=== PATIENT | male | born 1945 | race Caucasian/White ===

== ENCOUNTER 2016-09-13 14:47 | Inpatient (IN) | payer OTHER, MEDICAID ==
[~2016-09-13] VITALS: Ht 170.2 cm; Wt 70.8 kg
[~2016-09-13 14:47] MED LIST: ACYC200C10 PO; ALBU0.0912 IH; ASPI-1052 PO; ATOR40TA PO; CARV3.12 PO; CLOP75TA PO; LISI5TAB18 PO; METF500T PO
[2016-09-13 14:56] VITALS: BP 119/61
--- NOTE | 2016-09-13 15:46 | NUR ---
Patient ambulated to bed 05.
[2016-09-13] MEDS ORDERED: NACL 0.9% 1,000 ML IV ONE (15:55)
[2016-09-13] MEDS ORDERED: ASPIRIN 81 MG TAB.CHEW PO ONE (15:55)
--- NOTE | 2016-09-13 15:55 | NUR ---
PT PRESENTS TO ER AFTER REFERRAL FROM URGENT CARE FOR EVALUATION OF CHEST PAIN. 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
--- NOTE | 2016-09-13 16:00 | NUR ---
Dr. Nobles evaluating patient at bedside.
[2016-09-13] MEDS ORDERED: NITROGLYCERIN 2% 1 GM PKT TP ONE (16:10)
[2016-09-13] MEDS ORDERED: MORPHINE SULFATE 2 MG/ML SYR IVP ONE (16:10)
[2016-09-13 16:23] LABS: BASOPHILS # (AUTO) 0.5 K/uL (0.00-0.22); EOSINOPHILS # (AUTO) 0.1 K/uL (0-0.4); HEMATOCRIT 44.4 % (36-52); HEMOGLOBIN 14.5 g/dL (12.0-18.0); LYMPHOCYTES # (AUTO) 1.6 K/uL (2.0-11.5); MEAN CORPUSCULAR HEMOGLOBIN 31 pg (27-31); MEAN CORPUSCULAR HGB CONC 33 g/dL (33-37); MEAN CORPUSCULAR VOLUME 95 fL (80-94); MONOCYTES # (AUTO) 0.6 K/uL (0.8-1.0); NEUTROPHILS # (AUTO) 4.6 K/uL (1.8-7.7); PLATELET COUNT (AUTO) 290 K/uL (140-450); RED BLOOD CELL COUNT(AUTO) 4.68 MIL/uL (4.20-6.10); RED CELL DISTRIBUTION WIDTH 14.3 % (11.6-13.7); WHITE BLOOD COUNT (AUTO) 7.4 K/uL (4.8-10.8)
[2016-09-13 16:40] LABS: ANION GAP 11.4 (8-16); CARBON DIOXIDE 27.2 mmol/L (21-32); CHLORIDE 103 mmol/L (98-107); CREATININE 1.2 mg/dL (0.6-1.3); GLUCOSE 148 mg/dL (74-106); POTASSIUM 3.6 mmol/L (3.5-5.1); SODIUM SERUM 138 mmol/L (136-145); UREA NITROGEN, BLOOD 18 mg/dL (7-18)
[2016-09-13 16:46] LABS: INR 1.2 (0.8-1.2); PARTIAL THROMBOPLASTIN TIME 26.5 secs (22-35.6); PROTHROMBIN TIME 11.5 secs (10.8-13.4)
[2016-09-13 16:48] LABS: ALANINE AMINOTRANSFERASE 16 U/L (12-78); ALBUMIN 3.3 g/dL (3.4-5.0); ALKALINE PHOSPHATASE 105 U/L (46-116); ASPARTATE AMINOTRANSFERASE 19 U/L (15-37); TOTAL BILIRUBIN 0.7 mg/dL (0.0-1.0); TOTAL PROTEIN, SERUM 7.8 g/dL (6.4-8.2)
--- NOTE | 2016-09-13 17:20 | NUR ---
PT IS SLEEPING;NO ACUTE DISTRESS NOTED AT THIS TIME;WILL CONTINUE TO MONITOR PT.
[2016-09-13] MEDS ORDERED: ENOXAPARIN 60 MG/0.6 ML SYR SUBQ ONE (17:30)
[2016-09-13] MEDS: NACL 0.9% 1,000 ML IV SCH (17:42)
[2016-09-13] MEDS ORDERED: MORPHINE SULFATE 2 MG/ML SYR IVP PRN (17:45)
[2016-09-13] MEDS ORDERED: ZOLPIDEM 5 MG TAB PO PRN (17:45)
[2016-09-13] MEDS ORDERED: ONDANSETRON 4 MG/2 ML VIAL IVP PRN (17:45)
[2016-09-13] MEDS ORDERED: HYDROcodone/APAP 5/325 MG 1 TAB TAB PO PRN (17:45)
[2016-09-13] MEDS ORDERED: ACETAMINOPHEN 325 MG TAB PO PRN (17:45)
[2016-09-13] MEDS ORDERED: LORazepam 1 MG TAB PO PRN (17:45)
[2016-09-13] MEDS ORDERED: NITROGLYCERIN 0.4 MG TAB SL PRN (17:45)
[2016-09-13] MEDS ORDERED: INSULIN LISPRO SLIDING SCALE 100 UNITS/ML VIAL SUBQ PRN (18:00)
[2016-09-13] MEDS ORDERED: DEXTROSE 50% 50 ML SYR IVP PRN (18:00)
--- NOTE | 2016-09-13 18:35 | NUR ---
PT C/O OF SOB;PUT PT TO O2 AT 6 LPM.
[2016-09-13] MEDS ORDERED: ALBUTEROL SULFATE/IPRATROPIU 3 ML SOL IH ONE (18:50)
[2016-09-13 18:51] LABS: FREE T4 (FREE THYROXINE) 1.05 ng/dL (0.76-1.46); MAGNESIUM 1.8 mg/dL (1.8-2.4); PHOSPHORUS 3.2 mg/dL (2.5-4.9); THYROID STIMULATING HORMONE 1.59 uIU/mL (0.34-3.76)
--- NOTE | 2016-09-13 18:59 | NUR ---
Patient will be admitted to care of DR MAYA. Admited to TELE. Will go to room 106 A. Belongings list completed. Report to BELINDA ACUÑA.
[2016-09-13 19:02] LABS: CHOL/HDL RATIO 8.2 (1-4.5)
--- NOTE | 2016-09-13 19:08 | NUR ---
RT AT BEDSIDE.
--- NOTE | 2016-09-13 19:40 | NUR ---
RECEIVED REPORT FROM DOMENICO TREVINO WHO GOT REPORT FROM ER. PT ARRIVED TO UNIT VIA GURNEY. PT AAOX4. PT STABLE, VS STABLE. PT ON 02 2L NC; SATURATION 97%. PT'S SKIN IS INTACT. PT DENIES PAIN OR DISCOMFORT. PT HAS IV TO RIGHT WRIST G 22; ASYMPTOMATIC, PATENT AND INTACT INFUSING FLUIDS WELL. EXPLAINED PLAN OF CARE TO PT AND HE VERBALIZES UNDERSTANDING. CALL LIGHT WITHIN REACH.
[2016-09-13 19:41] LABS: APPEARANCE,URINE CLEAR (CLEAR); BILIRUBIN,URINE NEGATIVE (NEGATIVE); BLOOD, URINE TRACE-I (NEGATIVE); COLOR,URINE YELLOW (YELLOW); LEUKOCYTE ESTERASE ,URINE NEGATIVE (NEGATIVE); NITRITE, URINE NEGATIVE (NEGATIVE); PH,URINE 6.5 (5.0-9.0); PROTEIN,URINE NEGATIVE (NEGATIVE); UGLUCOSE NEGATIVE (NEGATIVE); UROBILINOGEN,URINE 0.2 EU/dL (0.2 - 1)
--- NOTE | 2016-09-13 19:42 | NUR ---
Pt report given to BELINDA ACUÑA. Transfer of care at this time.
[2016-09-13 19:48] LABS: BACTERIA,URINE None Seen /HPF (None Seen); RBC,URINE 0-5 (RARE) /HPF (0-5); SQUAMOUS EPITHELIAL CELL,UR RARE /LPF (0-3 (FEW)); WBC,URINE 0-5 (RARE) /HPF (0-5)
[2016-09-13] MEDS: CARVEDILOL 3.125 MG TAB PO SCH (21:03)
[2016-09-13] MEDS: BLOOD GLUCOSE MONITORING 1 DEV DEV FS SCH (21:04)
--- NOTE | 2016-09-13 21:06 | NUR ---
PT TOLERATED 2100 MED WELL. CALL LIGHT WITHIN REACH.
[2016-09-14] VITALS (60 sets, daily range): BP systolic 47–153; BP diastolic 30–109
--- NOTE | 2016-09-14 00:01 | NUR ---
PT HAS SCDS ON. CALL LIGHT WITHIN REACH.
--- NOTE | 2016-09-14 00:38 | NUR ---
RECEIVED CRITICAL LAB VALUE; TROPONIN 0.161. DR. LIVINGSTON WHO IS COVERING FOR DR. CARMEN TORIBIO. SHE STATED SHE WILL PUT IN ORDERS. WILL FOLLOW UP. PT STABLE.
[2016-09-14] MEDS ORDERED: HEPARIN PER PHARMACY MC PRN (00:55)
[2016-09-14] MEDS ORDERED: hePARIN / DEXT 5% PREMIX 250 ML IV SCH ×3 (00:55→13:00)
--- NOTE | 2016-09-14 01:06 | NUR ---
RECEIVED CRITICAL RAD REPORTS FROM RADIOLOGY. DOPPLER STUDY US AND VENOUS DOPPLER STUDY. DR. LIVINGSTON WHO IS COVERING FOR DR. MORALES AWARE. NO NEW ORDERS GIVEN. WILL CONTINUE TO MONITOR PT.
--- NOTE | 2016-09-14 02:08 | NUR ---
HEPARIN DRIP INFUSING ORDERED. 800 UNITS/HOUR. PT STABLE.
--- NOTE | 2016-09-14 02:15 | NUR ---
PT COMPLAINING OF DIFFICULTY BREATHING, RT AT BEDSIDE. PT ON VENTURI MASK. PT SATURATION IS 100%. WILL CONTINUE TO MONITOR PT.
--- NOTE | 2016-09-14 02:45 | NUR ---
PT COMPLAINING OF DIFFICULTY BREATHING, PT ON VENTURI MASK AT 50%, HR 128. DR. MEDINA NOTIFIED. DR. LIVINGSTON ORDERED ABG AND BIPAP. WILL FOLLOW UP.
--- NOTE | 2016-09-14 03:45 | NUR ---
PT STILL HAVING TROUBLE BREATHING WITH THE BIPAP, PT COLD AND SHOWING SIGNS OF DISTRESS. BLOOD PRESSURES STABLE, HEART RATE 120, BLOOD SUGAR 293. WILL CONTINUE TO MONITOR PT.
--- NOTE | 2016-09-14 03:45 | NUR ---
ABG WAS DONE AND RESULTS GIVEN TO DOMENICO STRATTON AND WAS GIVEN TO DR. LIVINGSTON. PATIENT WAS ABOUT TO BE TRANSFERED TO ICU THEN LIONEL CHOI WAS CALLED, AMBUED PATIERNT WITH 100%O2. PATIENT INTUBATED MY AND TRANSFERED TO ICU BED 3
--- NOTE | 2016-09-14 03:45 | NUR ---
ABG RESULTS ABNORMAL, PT STILL HAVING DIFFICULTY BREATHING. DR. MEDINA NOTIFIED. ORDERED TO TRANSFER PT TO ICU AND INTUBATE. WILL FOLLOW UP ON ORDERS.
--- NOTE | 2016-09-14 03:50 | NUR ---
PT DECLINING RAPIDLY, HAVING DIFFICULTY BREATHING, HEART RATE DECREASING NOW . CODE BLUE INITIATED. ER DR. HUFFMAN AT BEDSIDE INTERVENING. RT WENDY AND TIFFANI AT BEDSIDE. WILL CONTINUE MONITORING PT.
[2016-09-14 03:52] LABS: BLOOD GAS BASE EXCESS -7.2 mmol/L (-2.0-2.0); BLOOD GAS HCO3 23.1 mmol/L; BLOOD GAS O2 SAT% 98.7 % (92.0-98.5); BLOOD GAS PCO2 67.7 mmHg (20-50); BLOOD GAS PO2 166.9 mmHg
--- NOTE | 2016-09-14 04:10 | NUR ---
PT'S DAUGHTER NOTIFIED OF PT'S CONDITION.
--- NOTE | 2016-09-14 04:10 | NUR ---
DR. MEDINA NOTIFIED THAT PT CODED.
--- NOTE | 2016-09-14 04:35 | NUR ---
PT INTUBATED AND HEART RATE SR.
--- NOTE | 2016-09-14 04:35 | NUR ---
DAMARI GUTIERRES ORDERED TO STOP THE HEPARIN DRIP.
--- NOTE | 2016-09-14 04:40 | NUR ---
PT TRANSFERRED TO ICU FOR CONTINUITY OF CARE. REPORT GIVEN TO ICU NURSE JU. ER DOCTOR AND CHARGE NURSE AT BEDSIDE.
[2016-09-14] MEDS ORDERED: NOREPINEPHRINE 4 MG/4 ML VIAL IV ONE (05:00)
[2016-09-14] MEDS ORDERED: NOREPINEPHRINE 8 MG in DEXTROSE 5% 250 ML IV PRN (05:35)
--- NOTE | 2016-09-14 05:35 | NUR ---
PATIENT RECEIVED FROM [facility] AT [address] AND SOB, PATIENT S/P ORALLY INTUBATED, PATIENT CAME IN TO ICU WITH BRENNAN/DOMENICO, IVONNE/PROVIDER RELATIONS SPECIALIST. ER DOCTOR AT BEDSIDE RIGHT NOW FOR CENTRAL LINE PLACEMENT. PATIENT WAS STARTED ON LEVOPHED DRIP AND NS BOLUS 1000 ML GIVEN. PATIENT'S DAUGHTER JAMES AT BEDSIDE.
[2016-09-14] MEDS: NACL 0.9% 1,000 ML IV SCH ×2 (05:51→16:36)
--- NOTE | 2016-09-14 06:00 | NUR ---
TLC PLACED ON LEFT FEMORAL AREA BY ER PHYSICIAN.
[2016-09-14] MEDS ORDERED: NACL 0.9% 1,000 ML IV ONE ×2 (06:30→14:50)
--- NOTE | 2016-09-14 06:45 | NUR ---
RECEIVED PT ON [place]ES[place] ON A/C 14 VT 550 PEEP5 FIO2 100 ALARMS ARE ON AND FUNCTIONAL BMV HOB ANCHOR FAST PLACE ET TUBE SECURED 23 CM BS THONCI I\L LAVAGE AND SX SM BLOODY CXR WAS ORDERED PT IN HF NOT AWAKE VENT PLUGGED INTO RED OUTLET
--- NOTE | 2016-09-14 06:55 | NUR ---
PAGED DR. LIVINGSTON AT 2327. NO CALL BACK FROM UP TO THIS TIME.
[2016-09-14] MEDS: BLOOD GLUCOSE MONITORING 1 DEV DEV FS SCH ×3 (07:06→16:41)
--- NOTE | 2016-09-14 07:38 | NUR ---
ENDORSED PATIENT AND REPORT GIVEN TO NAMRATA HANSEN RN.
--- NOTE | 2016-09-14 07:40 | NUR ---
RECEIVED REPORT FROM DOMENICO DODD. NO SIGNS OF ACUTE DISTRESS AT THIS TIME, FLACC 0. PT IS ETT TO VENT. FIO2: 100%, AC: 14, TV: 550, PEEP: 5. OGT REPORTED TO BE MD MARIJA AWARE, AWAITING FOR CHEST XRAY RESULTS AT THIS TIME. IV TO RIGHT WRIST #22, PATENT AND INTACT. CENTRAL LINE IN PLACE TO LEFT FEMORAL X 3 LUMEN, ALL PORTS PATENT AND INTACT. PT IS ON LEVOPHED DRIP RUNNING AT 15 MCG/MIN. SKIN IS INTACT. SAFETY PRECAUTIONS IN PLACE WITH BED IN LOWEST POSITION AND SIDE RAILS UP X2. CALL LIGHT WITHIN REACH. PT IS CURRENTLY SINUS RHYTHM ON THE MONITOR. WILL CONTINUE TO MONITOR.
[2016-09-14 07:42] LABS: BLOOD GAS PCO2 45.5 mmHg (20-50); BLOOD GAS PH 7.253 (7.35-7.45)
[2016-09-14 07:43] LABS: BLOOD GAS BASE EXCESS -7.5 mmol/L (-2.0-2.0); BLOOD GAS HCO3 19.6 mmol/L; BLOOD GAS O2 SAT% 95.3 % (92.0-98.5); BLOOD GAS PO2 86.6 mmHg
--- NOTE | 2016-09-14 07:44 | NUR ---
DR. MAYA IN TO SEE PT. WILL FOLLOW UP ON ORDERS.
--- NOTE | 2016-09-14 07:48 | NUR ---
JULI REPORTED TO DR MAYA
[2016-09-14] MEDS: metFORMIN 500 MG TAB PO SCH ×2 (08:00→16:42)
[2016-09-14] MEDS ORDERED: PROPOFOL 1000 MG/100 ML PREMIX 100 ML IV PRN (08:00)
[2016-09-14 08:17] LABS: T4 (THYROXINE) 6.3 ug/dL (4.5-12.0)
[2016-09-14 08:19] LABS: HEMATOCRIT 43.3 % (36-52); HEMOGLOBIN 14.5 g/dL (12.0-18.0); MEAN CORPUSCULAR HEMOGLOBIN 31 pg (27-31); MEAN CORPUSCULAR HGB CONC 33 g/dL (33-37); MEAN CORPUSCULAR VOLUME 93 fL (80-94); PLATELET COUNT (AUTO) 333 K/uL (140-450); RED BLOOD CELL COUNT(AUTO) 4.64 MIL/uL (4.20-6.10); RED CELL DISTRIBUTION WIDTH 14.1 % (11.6-13.7)
--- NOTE | 2016-09-14 08:20 | NUR ---
PT'S STEP DAUGHTER, JAMES, IN TO SEE PT.
[2016-09-14] MEDS ORDERED: ARTIFICIAL TEARS OPHTH OINT 3.5 GM TUBE OP PRN (08:25)
--- NOTE | 2016-09-14 08:30 | NUR ---
PATIENT HAS BEEN SCREENED AND CATEGORIZED MODERATE NUTRITION RISK. PATIENT WILL BE SEEN WITHIN 3-5 DAYS OF ADMISSION. 09/16/16-09/18/[address] Addendum: 09/14/16 at [address] PATIENT HAS BEEN RESCREENED AND RECATEGORIZED HIGH NUTRITION RISK. PATIENT WILL BE SEEN WITHIN 1-2 DAYS OF ADMISSION. 09/14/16-09/15/[address]
[2016-09-14 08:51] LABS: ALANINE AMINOTRANSFERASE 25 U/L (12-78); ALBUMIN 2.6 g/dL (3.4-5.0); ALKALINE PHOSPHATASE 96 U/L (46-116); ANION GAP 14.7 (8-16); ASPARTATE AMINOTRANSFERASE 44 U/L (15-37); CALCIUM 7.8 mg/dL (8.5-10.1); CHLORIDE 107 mmol/L (98-107); CREATININE 1.5 mg/dL (0.6-1.3); GLUCOSE 256 mg/dL (74-106); MAGNESIUM 1.7 mg/dL (1.8-2.4); PHOSPHORUS 4.1 mg/dL (2.5-4.9); POTASSIUM 3.7 mmol/L (3.5-5.1); SODIUM SERUM 141 mmol/L (136-145); TOTAL BILIRUBIN 0.9 mg/dL (0.0-1.0); TOTAL PROTEIN, SERUM 6.6 g/dL (6.4-8.2); UREA NITROGEN, BLOOD 19 mg/dL (7-18)
[2016-09-14 08:54] LABS: BAND % (MANUAL) 12 % (0-8); LYMPHOCYTES % (MANUAL) 4 % (20-46); MONOCYTES % (MANUAL) 1 % (5-12); NEUTROPHILS % (MANUAL) 83 (43-65)
[2016-09-14 08:55] LABS: PLATELET ESTIMATE ADEQUATE
--- NOTE | 2016-09-14 08:58 | NUR ---
UNABLE TO ADMINISTER MEDICATION ORDERED OGT IS STUCK AND NOT ADVANCED TO THE STOMACH. MD AWARE.
[2016-09-14] MEDS ORDERED: CLOPIDOGREL 75 MG TAB PO SCH (09:00)
[2016-09-14] MEDS ORDERED: DOCUSATE SODIUM 100 MG GELCAP PO SCH (09:00)
[2016-09-14] MEDS ORDERED: LISINOPRIL 5 MG TAB PO SCH (09:00)
[2016-09-14] MEDS: CARVEDILOL 3.125 MG TAB PO SCH (09:00)
[2016-09-14] MEDS ORDERED: ATORVASTATIN 20 MG TAB PO SCH (09:00)
[2016-09-14] MEDS ORDERED: ASPIRIN 81 MG TAB.CHEW PO SCH (09:00)
--- NOTE | 2016-09-14 09:00 | NUR ---
VENT CHECK CREDIT UNION FIELD EXAMINER OBTAINED LG BLOODY
--- NOTE | 2016-09-14 09:01 | NUR ---
SPOKE WITH DR. SHELTON REGARDING OGT, RECOMMENDED NGT INSERTION FOR MEDICATION ADMINISTRATION. WILL FOLLOW UP ON ORDERS.
--- NOTE | 2016-09-14 09:06 | NUR ---
SPOKE WITH ERNA FROM [facility] AND GAVE VERBAL REPORT FAXED INITIAL REVIEW TO [facility] [phone] PHONE ERNA [phone]
[2016-09-14 09:34] LABS: INR 1.3 (0.8-1.2); PARTIAL THROMBOPLASTIN TIME 27.4 secs (22-35.6); PROTHROMBIN TIME 12.1 secs (10.8-13.4)
[2016-09-14] MEDS ORDERED: MAG SULF 2000 MG/WATER PREMIX 50 ML IV SCH (09:35)
[2016-09-14] MEDS ORDERED: PANTOPRAZOLE 40 MG INJ VIAL IVP SCH (09:37)
--- NOTE | 2016-09-14 09:57 | NUR ---
16 FR NELSON CATHETER INSERTED. PT TOLERATED WELL. OUTPUT OF CLEAR YELLOW URINE RETURN, 225 ML IN DRAINAGE BAG. WILL CONTINUE TO MONITOR.
--- NOTE | 2016-09-14 09:59 | NUR ---
DR. NAVARRETE IN TO SEE PT. WILL FOLLOW UP ON ORDERS.
--- NOTE | 2016-09-14 10:01 | NUR ---
UNABLE TO SUCCESSFULLY INSERTED NGT AFTER REPEATED ATTEMPTS. NOTIFIED DR. SHELTON. WILL ATTEMPT REINSERTION AT A LATER TIME.
--- NOTE | 2016-09-14 10:16 | NUR ---
VENT CHECK BS COARSE I\L LAVAGE AND SX SM BLOODY ORAL AIRWAY IN PLACE
--- NOTE | 2016-09-14 10:21 | NUR ---
PT TOLERATED MEDS WELL
--- NOTE | 2016-09-14 10:25 | NUR ---
PT TAKEN TO [facility] RETURNED TO ICU 3 1050 WITHOUT INCIDENT
--- NOTE | 2016-09-14 10:58 | NUR ---
PT BACK FROM CT AND PLACED ON THE MONITOR.
[2016-09-14 11:03] LABS: HEMOGLOBIN A1C 6.6 % (4.8-5.6)
--- NOTE | 2016-09-14 12:17 | NUR ---
DR. BACH IN TO SEE PT. WILL FOLLOW UP ON ORDERS
--- NOTE | 2016-09-14 12:39 | NUR ---
PER DR. MOTTA, HOLD PROPOFOL DRIP AT THIS TIME.
--- NOTE | 2016-09-14 12:54 | NUR ---
PT'S RESPIRATIONS ARE IRREGULAR, USE OF ACCESSORY MUSCLE USE NOTED. O2 SAT: HIGH 70'S-LOW 80'S. NOTIFIED RT. PAGED DR. MOTTA
[2016-09-14] MEDS ORDERED: MIDAZOLAM MDV 50 MG in NACL 0.9% 40 ML IV PRN (13:00)
--- NOTE | 2016-09-14 13:00 | NUR ---
RECEIVED CALLBACK FROM DR. MOTTA. NEW ORDERS RECEIVED.
--- NOTE | 2016-09-14 13:06 | NUR ---
RT PRESENT AT BEDSIDE.
--- NOTE | 2016-09-14 13:07 | NUR ---
CHANGE PT OT PCV 25 PEEP 5 RR 14 ITIME .[address] MOTTA BS COARSE I\L LAVAGE AND SX SM BLODDY
--- NOTE | 2016-09-14 13:11 | NUR ---
CHECKED BP: 54/24, LEVOPHED DRIP MAXED AT 30 MCG/MIN. RT REMAINS AT BEDSIDE. O2: 92% AT THIS TIME. INFORMED DR. PEREZ OF PT'S WORSENING CONDITIONING.
[2016-09-14] MEDS ORDERED: NACL 0.9% 1,000 ML IV SCH (13:15)
[2016-09-14] MEDS ORDERED: PHENYLEPHRINE 10 MG in NACL 0.9% 250 ML IV PRN (13:15)
--- NOTE | 2016-09-14 13:16 | NUR ---
CALLED PT'S STEP DAUGHTER, JAMES, TO UPDATE HER ON PT'S CURRENT STATUS. WILL BE IN TO SEE PT.
--- NOTE | 2016-09-14 13:41 | NUR ---
DECREASE PP TO 22 RR INCREASE TO 18 ITIME INCREASE TO 1.0
--- NOTE | 2016-09-14 13:59 | NUR ---
PT'S BP STABLE: 105/54. DR. MOTTA PRESENT AT BEDSIDE. OGT REMOVED BY DR. MOTTA.
[2016-09-14] MEDS ORDERED: fentaNYL 1 MG in NACL 0.9% 80 ML IV SCH (14:17)
--- NOTE | 2016-09-14 14:19 | NUR ---
ABG RESULTS REPORTED TO DR MOTTA NO CHANGES MADE
[2016-09-14 14:22] LABS: BLOOD GAS O2 SAT% 91.7 % (92.0-98.5); BLOOD GAS PCO2 41.3 mmHg (20-50); BLOOD GAS PH 7.233 (7.35-7.45); BLOOD GAS PO2 71.5 mmHg
--- NOTE | 2016-09-14 14:24 | NUR ---
PT'S SONS PRESENT AT BEDSIDE.
--- NOTE | 2016-09-14 14:28 | NUR ---
09/14/16 RD INITIAL ASSESSMENT COMPLETED PLEASE REFER TO NUTRITION ASSESSMENT UNDER CARE ACTIVITY FOR ESTIMATED NUTRITIONAL NEEDS. RD RECOMMENDATIONS: 1. CONTINUE NPO MEDICALLY NECESSARY PER MD 2. WHEN/IF NGTUBE SUCCESSFULLY PLACED CONSIDER NUTRITION SUPPORT DIABETISOURCE AT 20 ML/HR AND ADVANCE 10 ML Q6H TO GOAL OF 65 ML/HR. --AT GOAL OF 65 ML/HR THIS WILL PROVIDE 1560 ML TOTAL VOLUME, 1872 KCAL, 94 GM PROTEIN, 1276 ML FREE WATER. THIS WILL MEET 100% OF PT ESTIMATED KCAL NEEDS AND 87% OF PT ESTIMATED PROTEIN NEEDS 3. WHEN/IF PT SUCCESSFULLY EXTUBATED CONSIDER ADVANCE DIET SLOWLY, AND TOLERATED TO CCHO 60 GM CARDIAC DIET WITH SWALLOW EVALUATION FOR TEXTURE RECOMMENDATIONS 4. RD WILL F/U 2-3 DAYS; HIGH RISK. DEVENDRA MCKEE RD
[2016-09-14] MEDS ORDERED: ALBUTEROL SULFATE/IPRATROPIU 3 ML SOL IH SCH ×3 (14:50→19:00)
--- NOTE | 2016-09-14 15:45 | NUR ---
PT'S EX- IN TO SEE PT.
--- NOTE | 2016-09-14 16:40 | NUR ---
SS NOTE: DR. PEREZ AND I SPOKE WITH PT'S SONS, MICHAEL AND CECILY WELL PT'S EX-, WILLIS REGARDING TERMINAL EXTUBATION. THEY STATED THAT THEY HAVE MADE ATTEMPTS TO CONTACT PT'S ESTRANGED SON AND DAUGHTER BUT HAVE BEEN UNSUCCESSFUL. THEY ALSO STATED THAT THEY TRIED TO CALL PT'S GRANDDTR, OMA ON THE NUMBER LISTED IN PT'S PHONE BUT THE NUMBER IS DISCONNECTED. MICHAEL REPORTED THAT THEY CAN GO TO PT'S APT AND SEE IF THEY CAN LOCATE ANY OTHER NUMBERS FOR PT'S OTHER CHILDREN BUT THEY HAVE BEEN ESTRANGED FOR OVER 10 YEARS. I ALSO PROVIDED THEM WITH MORTUARY INFORMATION. Addendum: 09/15/16 at 1027 by Joan Prado PT'S SONS INFORMED US THAT THEY ARE AWARE OF PT'S WISHES AND WILL TRY TO SEE IF THEY CAN CONTACT PT'S OTHER CHILDREN.
--- NOTE | 2016-09-14 16:45 | NUR ---
PT'S FAMILY HAS DECIDED TO REMOVE ALL CARE. PT IS NOW DNR STATUS, SPOKE WITH DR. PEREZ AND DR. MOTTA. WILL FOLLOW UP ON ORDERS.
--- NOTE | 2016-09-14 16:50 | NUR ---
PER PT'S SON, DANICA BERMUDEZ TO BE THE DESIGNATED HOME. INFORMED PT'S SON THAT WE NEED TO CONTACT PT'S SIBLINGS BEFORE EXTUBATING PT. PER PT'S SON, HE WILL NOTIFY US. Addendum: 09/14/16 at 1653 by Kyra Guerrero RN PT'S SON'S PHONE NUMBER: [phone]
--- NOTE | 2016-09-14 17:08 | NUR ---
POLST HAS BEEN SIGNED BY PT'S SONS AND BY DR. PEREZ/DR. MAYA. PLACED IN PT'S CHART.
[2016-09-14] MEDS ORDERED: LORazepam 2 MG/ML VIAL IVP PRN (17:15)
[2016-09-14] MEDS ORDERED: MORPHINE SULFATE 100 MG in NACL 0.9% 90 ML IV SCH (17:15)
--- NOTE | 2016-09-14 17:24 | NUR ---
PER FIRE TECHNOLOGY INSTRUCTORAUDREY, PT CANNOT LEGALLY BE EXTUBATED WITHOUT FIRST CONTACTING PT'S SIBLINGS. PAGED DR. MOTTA TO NOTIFY HER, AWAITING CALLBACK.
--- NOTE | 2016-09-14 17:29 | NUR ---
RECEIVED CALLBACK FROM DR. MOTTA AND INFORMED HER OF REQUIREMENT TO CONTACT PT'S SIBLINGS BEFORE EXTUBATION
--- NOTE | 2016-09-14 17:37 | NUR ---
SPOKE WITH JESUS FROM [employer] REGARDING CANDIDACY FOR ORGAN DONATION. CASE #: [id number]
--- NOTE | 2016-09-14 17:41 | NUR ---
RECEIVED CALL FROM FRANCHESCA FROM [employer]. PER FRANCHESCA, PT IS NOT A CANDIDATE DUE TO AGE. INFORMED A STEREO EQUIPMENT REPAIRER WILL COME OUT TO REVIEW PT'S CHART.
[2016-09-14 18:04] LABS: HEMATOCRIT 46.6 % (36-52); HEMOGLOBIN 15.3 g/dL (12.0-18.0); MEAN CORPUSCULAR HEMOGLOBIN 31 pg (27-31); MEAN CORPUSCULAR HGB CONC 33 g/dL (33-37); MEAN CORPUSCULAR VOLUME 94 fL (80-94); PLATELET COUNT (AUTO) 313 K/uL (140-450); RED BLOOD CELL COUNT(AUTO) 4.93 MIL/uL (4.20-6.10); RED CELL DISTRIBUTION WIDTH 14.2 % (11.6-13.7); WHITE BLOOD COUNT (AUTO) 4.9 K/uL (4.8-10.8)
[2016-09-14 18:16] LABS: CALCIUM 8.5 mg/dL (8.5-10.1); CARBON DIOXIDE 21.5 mmol/L (21-32); CHLORIDE 108 mmol/L (98-107); CREATININE 1.4 mg/dL (0.6-1.3); GLUCOSE 87 mg/dL (74-106); POTASSIUM 3.5 mmol/L (3.5-5.1); SODIUM SERUM 141 mmol/L (136-145); UREA NITROGEN, BLOOD 22 mg/dL (7-18)
[2016-09-14 18:26] LABS: BAND % (MANUAL) 44 % (0-8); EOSINOPHILS % (MANUAL) 1 % (0-4); LYMPHOCYTES % (MANUAL) 6 % (20-46); MONOCYTES % (MANUAL) 6 % (5-12); NEUTROPHILS % (MANUAL) 43 (43-65); PLATELET ESTIMATE ADEQUATE
--- NOTE | 2016-09-14 18:32 | NUR ---
PT'S FAMILY PRESENT AT BEDSIDE. PAGED DR. MOTTA THEY HAVE QUESTIONS. AWAITING CALLBACK.
--- NOTE | 2016-09-14 18:35 | NUR ---
RECEIVED CALLBACK FROM DR. MOTTA, SPOKE WITH PT'S DAUGHTER, SVEN.
--- NOTE | 2016-09-14 18:44 | NUR ---
PT IS ASYSTOLE ON THE MONITOR. DR. MONZON PRESENT AT BEDSIDE.
--- NOTE | 2016-09-14 18:45 | NUR ---
DR. MONZON PRONOUNCED TIME OF .
--- NOTE | 2016-09-14 19:08 | NUR ---
CALLED DR. MAYA AND INFORMED HIM OF PT'S PRONOUNCED TIME OF .
--- NOTE | 2016-09-14 19:12 | NUR ---
LEFT MESSAGES WITH DR. BACH AND DR. NAVARRETE'S OFFICE REGARDING PT'S EXPIRATION. PAGED DR. MOTTA
--- NOTE | 2016-09-14 19:15 | NUR ---
SHAFT TEND[employer] CALLED. SPOKE WITH CERTIFIED MEDICAL RECORDS CODER, SHAHIDA. INFORMED SHE WILL CALL BACK.
--- NOTE | 2016-09-14 19:16 | NUR ---
ENDORSED CARE TO DOMENICO DODD.
--- NOTE | 2016-09-14 19:23 | NUR ---
SPOKE WITH LENO FROM [employer]. INFORMED THAT PT MAY BE ELIGIBLE FOR TISSUE DONATION. WILL RECEIVE CALLBACK.
--- NOTE | 2016-09-14 19:31 | NUR ---
SPOKE WITH NINA VALDEZ MANAGER NUCLEAR. CASE #: [id number]. INFORMED CAN BE RELEASED.
--- NOTE | 2016-09-14 20:55 | NUR ---
BODY PICKED UP BY UMESH ACOSTA MORTICIAN, NO BELONGINGS, PATIENT'S DAUGHTER SVEN AWARE THAT PATIENT'S DOES NOT HAVE ANY BELONGINGS UPON PATIENT'S TRANSFER TO ICU THIS MORNING FROM [facility].
[2016-09-14] MEDS ORDERED: levETIRAcetam 500 MG in NACL 0.9% 100 ML IV SCH (21:00)
[2016-09-15] MEDS ORDERED: CLOPIDOGREL 75 MG TAB PO SCH (09:00)
[2016-09-15] MEDS ORDERED: PANTOPRAZOLE 40 MG INJ VIAL IVP SCH (09:00)
== END 2016-09-14 20:50 | disposition expired | DRG 208 ==
LOC: MED 14:47 → MTU 17:53 → MIC 09-14 04:40
PROVIDERS: ADMIT Family Medicine; ATTEND Family Medicine
PROC: 0BH17EZ Insertion of Endotracheal Airway into Trachea, Via Natural or Artificial Opening (ICD-10-PCS; 2016-09-13)
PROC: 5A1935Z Respiratory Ventilation, Less than 24 Consecutive Hours (ICD-10-PCS; principal; 2016-09-14)
PROC: 4A00X4Z Measurement of Central Nervous Electrical Activity, External Approach (ICD-10-PCS; 2016-09-14)
PROC: 06HN33Z Insertion of Infusion Device into Left Femoral Vein, Percutaneous Approach (ICD-10-PCS; 2016-09-14)
PROC: 5A09357 Assistance with Respiratory Ventilation, Less than 24 Consecutive Hours, Continuous Positive Airway Pressure (ICD-10-PCS; 2016-09-14)
DX: J96.01 Acute respiratory failure with hypoxia (principal); I50.43 Acute on chronic combined systolic (congestive) and diastolic (congestive) heart failure; I21.4 Non-ST elevation (NSTEMI) myocardial infarction; G93.1 Anoxic brain damage, not elsewhere classified; G40.89 Other seizures; M94.0 Chondrocostal junction syndrome [Tietze]; E11.649 Type 2 diabetes mellitus with hypoglycemia without coma; I46.9 Cardiac arrest, cause unspecified; Z66 Do not resuscitate; Z53.29 Procedure and treatment not carried out because of patient's decision for other reasons; I25.5 Ischemic cardiomyopathy; I25.118 Atherosclerotic heart disease of native coronary artery with other forms of angina pectoris; Z79.899 Other long term (current) drug therapy; Z86.73 Personal history of transient ischemic attack (TIA), and cerebral infarction without residual deficits
CPT/HCPCS: 36415; 36600; 70450; 71010; 80048; 80053; 81001; 82803; 82948; 83036; 83735; 83880; 84100; 84436; 84439; 84443; 84479; 84484; 85025; 85610; 85730; 87070; 87081; 87205; 92950; 93005; 93925; 93970; 94002; 94003; 94640; 94660; 95816; 96361; 96372; 96374; 99285; C9113; J1644; J1650; J1815; J1953; J2250; J2270; J2370; J3010; J3475; J3490; J7030; J7060; J7620; Q0092